=== PATIENT | male | born 1960 | race Caucasian/White ===

== ENCOUNTER → 2018-03-01 | Outpatient (CLI) | payer OTHER ==
[~2018-03-01] MED LIST: MULTIVITAMINS PO; OMEGA-3 KRILL1 EAC1 PO; PREVACID15 MG PO; RITALIN10 MG PO; STOOL SOFTENER1 EAC2 PO
== END ==
LOC: CAT 15:24
DX: Z13.6 Encounter for screening for cardiovascular disorders (principal); E78.00 Pure hypercholesterolemia, unspecified

== ENCOUNTER → 2020-06-22 | Outpatient (CLI) | payer OTHER | LOC: MRI 10:20 | PROVIDERS: ATTEND Family Medicine | DX: M43.16 Spondylolisthesis, lumbar region (principal); M48.061 Spinal stenosis, lumbar region without neurogenic claudication; M54.5 Low back pain ==